=== PATIENT | female | born 1990 | race Caucasian/White ===

== ENCOUNTER 2021-03-31 12:15 | Emergency (ER) | payer OTHER ==
[~2021-03-31 12:15] MED LIST: NEURONTIN 400400 MG PO; PERCOCET 10-321 EACH PO; SUBOXONE PO; SUBUTEX 8 MG TAB8 MG SL; TAPAZOLE5 MG PO; TENORMIN 25 MG25 MG PO; ZANTAC150 MG PO
[2021-03-31 13:03] LABS: HEMOGLOBIN 13.9 gm/dl (12.3-15.3); RED BLOOD COUNT 4.46 M/UL (4.00-5.10); WHITE BLOOD COUNT 5.6 K/UL (4.5-11.0)
[2021-03-31 13:39] LABS: BUN/CREATININE RATIO 12 (0-10)
== END 2021-03-31 17:17 | disposition home or self-care (01) ==
LOC: ER1 12:15
PROVIDERS: Emergency Medicine
DX: E86.0 Dehydration (principal); F17.210 Nicotine dependence, cigarettes, uncomplicated
CPT/HCPCS: 71045; 80053; 82550; 82553; 83874; 84484; 84702; 85025; 85379; 93005; 99285; J7120

== ENCOUNTER → 2021-05-13 | Outpatient (CLI) | payer OTHER | LOC: HEART 5 05-12 15:00 | DX: R00.0 Tachycardia, unspecified (principal) ==